=== PATIENT | female | born 1980 | race Caucasian/White ===

== ENCOUNTER 2020-12-16 07:59 | Emergency (ER) | payer OTHER ==
[2020-12-16] MEDS ORDERED: KETOROLAC 15 MG/ML VIAL IM STA (08:25)
[2020-12-16] MEDS ORDERED: FLUTICASONE NASAL SPRAY NAS STA (08:26)
[2020-12-16] MEDS ORDERED: SUMAtriptan 25 MG TABLET PO STA (08:26)
[2020-12-16] MEDS ORDERED: diphenhydrAMINE INJ 50 MG/ML VIAL IM STA (08:26)
--- NOTE | 2020-12-16 08:29 | ED Physician Documentation ---
History of Present Illness - Stated complaint Stated Complaint: HEADACHE - Chief complaint Chief Complaint: Neuro - History obtained from History obtained from: Patient - Additonal information Additional information: 40-year-old woman with past medical history of seasonal allergies and sinusitis p/w 7 bitemporal headache upon waking from sleep this morning a/w severe sinus congestion and some postnasal drip. +ear fullness. denies cough. patient has had headaches and sinus congestion on and off for the past 4 days. they recently moved [place] a new homestead. denies sick contacts, fever, nausea, co nfusion, vision changes. Review of Systems Ten Systems: 10 systems reviewed and negative Constitutional: denies: Fever, Chills Eyes: denies: Decreased vision, Photophobia Ears: reports: Other (+ ear fullness). denies: Ear pain Nose: reports: Congestion Throat: reports: Sore throat Respiratory: denies: Dyspnea, Cough GI: denies: Nausea Musculoskeletal: denies: Neck pain PD PAST MEDICAL HISTORY - Past Medical History Past Medical History: Yes Cardiovascular: Hypertension Respiratory: None Neuro: Headaches Endocrine/Autoimmune: None GI: None DIVISION SALES MANAGER: None : None HEENT: None Psych: ADD/ADHD Musculoskeletal: None Derm: None - Past Surgical History Past Surgical History: Yes General: Cholecystectomy /DIVISION SALES MANAGER: Breast implants - Present Medications Home Medications: Ambulatory Orders Medication Instructions Recorded Confirmed Ketorolac [Toradol] 10 mg PO Q6H PRN #30 tablet 12/16/20 Methylphenidate HCl [Concerta] 27 mg PO DAILY 12/16/20 12/16/20 - Allergies Allergies/Adverse Reactions: Allergies Allergy/AdvReac Type Severity Reaction Status Date / Time No Known Drug Allergies Allergy Verified 12/16/20 08:07 - Social History Does the pt smoke?: Yes Smoking Status: Current every day smoker Does the pt drink ETOH?: Yes Does the pt have substance abuse?: Yes Substance Use and Type: Marijuana - Immunizations Immunizations are current?: Yes PD ED PE NORMAL - Vitals Vital signs reviewed: Yes - General General: Alert and oriented X 3, No acute distress, Well developed/nourished - HEENT HEENT: Atraumatic, PERRL, EOMI, Ears normal, Moist mucous membranes, Other (moderate nasal congestion) - Neck Neck: Supple, no meningeal sign - Derm Derm: Normal color, Warm and dry - Extremities Extremities: No deformity - Neuro Neuro: Alert and oriented X 3, crime specialist 2-12 intact, No motor deficit, No sensory deficit, Normal speech, Other (normal gait and cerebellar testing) Results - Vitals Vitals: Vital Signs - 24 hr 12/16/20 08:07 Temperature 36.6 C Heart Rate 78 Respiratory 18 Rate Blood Pressure 151/94 H O2 Saturation 100 Oxygen O2 Source Room air PD MEDICAL DECISION MAKING - ED course ED course: 40-year-old woman with past medical history of sinusitis and seasonal allergies presents with severe sinus congestion and 7 out of 10 headache upon waking from sleep this morning. No neurologic symptoms aside from headache behind the eyes and in the temporal region, reproducible with palpation of the sinuses, and she has a normal neurologic exam. Symptomatic care discussed. Offered to keep her in the emergency department to see how the medication works, but they would prefer to go home and get some rest. Return precautions given. [place] Impression 1. headache 2. sinus congestion Departure - Departure Disposition: 01 Home, Self Care Condition: Good Instructions: Headaches Sinus Prescriptions: Ketorolac [Toradol] 10 mg PO Q6H PRN #30 tablet PRN Reason: Pain Comments: You were seen in the emergency department for severe sinus headache. I hope that you have some relief of your symptoms with the medications that we have given you! please get lots of rest, drink 8 to 10 glasses of water daily, and use oxymetazoline spray twice daily as need in addition to a cool mist humidifier. Please return to the emergency department if you have new or worse esperanza symptoms or other concerns. Follow up with your primary doctor. Forms: Activity restrictions
[2020-12-16] MEDS ORDERED: SODIUM CHLORIDE 0.9% 1,000 ML IV STA (09:20)
[2020-12-16] MEDS ORDERED: MORPHINE 2 MG/ML CARPUJECT IVP STA (09:20)
[2020-12-16] MEDS ORDERED: IOVERSOL 320 100 ML VIAL IVP ONE ×2 (09:30→10:34)
[2020-12-16 09:33] LABS: BASOPHILS % (AUTO) 0.3 %; EOSINOPHILS # (AUTO) 0.2 10^3/uL (0.0-0.7); HCT - HEMATOCRIT 47.3 % (37.0-47.0); HGB - HEMOGLOBIN 16.2 g/dL (12.0-16.0); LYMPHOCYTES # (AUTO) 1.6 10^3/uL (1.5-3.5); LYMPHOCYTES % (AUTO) 13.2 %; MEAN CORPUSCULAR HEMOGLOBIN 36.3 pg (27.0-31.0); MEAN CORPUSCULAR HGB CONC 34.2 g/dL (32.0-36.0); MEAN CORPUSCULAR VOLUME 106.1 fL (81.0-99.0); MEAN PLATELET VOLUME 9.8 fL (7.9-10.8); MONOCYTES # (AUTO) 0.7 10^3/uL (0.0-1.0); MONOCYTES % (AUTO) 5.8 %; NEUTROPHILS # (AUTO) 9.2 10^3/uL (1.5-6.6); NEUTROPHILS % (AUTO) 78.4 %; PLT - PLATELET COUNT 306 10^3/uL (130-450); RED BLOOD COUNT 4.46 10^6/uL (4.20-5.40); RED CELL DISTRIBUTION WIDTH 11.6 % (12.0-15.0); WHITE BLOOD COUNT 11.7 x10^3/uL (4.8-10.8)
[2020-12-16 09:40] LABS: CALCIUM 9.5 mg/dL (8.5-10.3); CREATININE 0.8 mg/dL (0.4-1.0)
[2020-12-16 10:15] LABS: HCG UR QUAL NEGATIVE
--- NOTE | 2020-12-16 11:06 | CT Report ---
PROCEDURE: ANGIO HEAD W/WO INDICATIONS: sudden severe headache on waking, refractory to me CONTRAST: IV CONTRAST: Optiray 320 ml: 80 PO CONTRAST: *NO PO CONTRAST TECHNIQUE: Precontrast 4.5 mm thick angled axial sections acquired from the foramen magnum to the vertex. Afte r the administration of intravenous contrast, 1 mm thick sections acquired through the [place] of [place] is. Postcontrast 4.5 mm thick sections then re-acquired from the foramen magnum to the vertex. 3-di mensional qnbusud-nreeflrnm-desphusvfg (MIP) and/or volume rendering reformats were acquired of the c entral intracranial vasculature. For radiation dose reduction, the following was used: automated ex posure control, adjustment of mA and/or kV according to patient size. COMPARISON: FINDINGS: Image quality: Excellent. Anterior circulation: Intracranial internal carotid arteries are normal in size and flow. The flow within the paired anterior cerebral arteries is normal and symmetric. The flow within the middle cer ebral arteries is normal and symmetric. The anterior communicating artery is seen. No aneurysms are seen. Posterior circulation: Visualized portions of the vertebral arteries demonstrate normal caliber, and join to form a normal appearing basilar artery. Flow within the posterior cerebral arteries is norm al and symmetric. No aneurysms are seen. CSF spaces: Ventricles are normal in size and shape. Basal cisterns are patent. No extra-axial flu id collections. Brain: No midline shift. No intracranial bleeds or masses. Cobb-white matter interface appears int act. Skull and face: Calvarium and facial bones appear intact, without suspicious lesions. Sinuses: Near complete opacification of the sphenoid sinuses. There is underlying sphenoid sinus muco rita thickening. Patchy bilateral ethmoid opacification. Mastoids are clear. IMPRESSION: 1. No evidence of acute stroke, hemorrhage, or mass. 2. No evidence of cerebral aneurysm. 3. Acute on chronic sphenoid sinusitis, chronic ethmoid sinusitis. Reviewed by: Valentín Thomason MD on 12/16/2020 10:04 AM OZIEL Approved by: Valentín Thomason MD on 12/16/2020 10:04 AM OZIEL Station ID: [id number]
[2020-12-16 11:53] VITALS: BP 120/80
== END 2020-12-16 11:53 | disposition home or self-care (01) ==
LOC: ED 07:59
DX: R51.9 Headache, unspecified (principal); J32.9 Chronic sinusitis, unspecified; I10 Essential (primary) hypertension; F17.200 Nicotine dependence, unspecified, uncomplicated
CPT/HCPCS: 36415; 70496; 80048; 81025; 85025; 96372; 96374; 99284; A9270; J1200; Q9967; 84703

== ENCOUNTER 2024-01-05 21:49 | Outpatient (CLI) | payer OTHER | END 2024-01-05 23:59 | disposition critical access hospital (66) | LOC: EMS 21:49 | DX: S51.812A Laceration without foreign body of left forearm, initial encounter (principal); S51.811A Laceration without foreign body of right forearm, initial encounter; X78.9XXA Intentional self-harm by unspecified sharp object, initial encounter | CPT/HCPCS: A0425; A0429 ==

== ENCOUNTER 2024-01-05 22:19 | Emergency (ER) | payer OTHER ==
[2024-01-05 22:43] LABS: BILIRUBIN,URINE NEGATIVE (NEGATIVE); GLUCOSE, URINE (UA) NEGATIVE (NEGATIVE); KETONES,URINE (UA) NEGATIVE (NEGATIVE); LEUKOCYTE ESTERASE, URINE TRACE (NEGATIVE); NITRITE,URINE NEGATIVE (NEGATIVE); OCCULT BLOOD,URINE LARGE (NEGATIVE); PROTEIN,URINE NEGATIVE (NEGATIVE); UROBILINOGEN,URINE 0.2 (NORMAL) E.U./dL (NORMAL)
[2024-01-05 22:44] LABS: CLARITY,URINE CLEAR (CLEAR)
[2024-01-05 22:45] LABS: HCG UR QUAL NEGATIVE
[2024-01-05 22:48] LABS: BASOPHILS % (AUTO) 0.4 %; EOSINOPHILS # (AUTO) 0.2 10^3/uL (0.0-0.7); HCT - HEMATOCRIT 39.3 % (37.0-47.0); HGB - HEMOGLOBIN 13.1 g/dL (12.0-16.0); LYMPHOCYTES # (AUTO) 1.9 10^3/uL (1.5-3.5); LYMPHOCYTES % (AUTO) 18.2 %; MEAN CORPUSCULAR HGB CONC 33.3 g/dL (32.0-36.0); MEAN CORPUSCULAR VOLUME 102.1 fL (81.0-99.0); MEAN PLATELET VOLUME 9.8 fL (7.9-10.8); MONOCYTES # (AUTO) 0.9 10^3/uL (0.0-1.0); MONOCYTES % (AUTO) 8.3 %; NEUTROPHILS # (AUTO) 7.6 10^3/uL (1.5-6.6); NEUTROPHILS % (AUTO) 70.9 %; PLT - PLATELET COUNT 317 10^3/uL (130-450); RED BLOOD COUNT 3.85 10^6/uL (4.20-5.40); RED CELL DISTRIBUTION WIDTH 11.1 % (12.0-15.0); WHITE BLOOD COUNT 10.7 x10^3/uL (4.8-10.8)
[2024-01-05 22:55] LABS: BACTERIA,URINE Rare /HPF (None Seen); RBC,URINE 0-5 /HPF (0-5); SQUAMOUS EPITHELIAL CELL,UR FEW Squamous (<= Few); WBC,URINE 0-3 /HPF (0-5)
[2024-01-05 22:56] LABS: AMPHETAMINE SCREEN,URINE NEGATIVE (NEGATIVE); BARBITURATE SCREEN,UR NEGATIVE (NEGATIVE); BENZODIAZEPINES SCREEN, URINE NEGATIVE (NEGATIVE); BUPRENORPHINE SCREEN, URINE NEGATIVE (NEGATIVE); COCAINE SCREEN URINE NEGATIVE (NEGATIVE); METHADONE SCREEN, URINE NEGATIVE (NEGATIVE); METHAMPHETAMINES SCREEN, URINE NEGATIVE (NEGATIVE); OPIATE SCREEN, URINE NEGATIVE (NEGATIVE); OXYCODONE SCREEN, URINE NEGATIVE (NEGATIVE); THC CANNABINOID SCREEN, URINE NEGATIVE (NEGATIVE); TRICYCLIC ANTIDEPRESSANT,URINE NEGATIVE (NEGATIVE)
[2024-01-05 23:08] LABS: ACETAMINOPHEN 0.3 ug/mL; ALBUMIN 4.7 g/dL (3.2-5.5); ALBUMIN/GLOBULIN RATIO 1.6 (1.0-2.2); ALKALINE PHOSPHATASE 49 IU/L (42-121); ALT ALANINE AMINOTRANSFERASE 14 IU/L (10-60); AST ASPARTATE AMINOTRANSFERASE 18 IU/L (10-42); BILIRUBIN,TOTAL 0.6 mg/dL (0.2-1.0); BUN - BLOOD UREA NITROGEN 19 mg/dL (6-20); CARBON DIOXIDE - CO2 24 mmol/L (21-32); CHLORIDE 102 mmol/L (101-111); GFR - MDRD 60 (>89); GLUCOSE 99 mg/dL (74-104); POTASSIUM 3.8 mmol/L (3.5-4.5); SODIUM 136 mmol/L (135-145); TOTAL PROTEIN 7.6 g/dL (6.4-8.9)
[2024-01-05 23:09] LABS: LIPASE < 10 U/L (11-82); SALICYLATE < 1.5 mg/dL
[2024-01-05 23:39] LABS: THYROID STIMULATING HORMONE 3.51 uIU/mL (0.34-5.60)
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
[2024-01-06] MEDS: BACITRACIN ZINC OINT 1 PACKET TOP STA (02:40)
[2024-01-06] MEDS: TETANUS/DIPHTHERIA/PERTUSSIS 0.5 ML SYRINGE IM ONE (02:40)
[2024-01-06] MEDS: LIDOCAINE 1% 2 ML VIAL SUBQ STA (02:40)
[2024-01-06 04:07] VITALS: BP 148/82; O2SAT 99
== END 2024-01-06 03:56 | disposition home or self-care (01) ==
LOC: EDUNIT# → ED 22:19
DX: S51.811A Laceration without foreign body of right forearm, initial encounter (principal); Z91.52 Personal history of nonsuicidal self-harm; W26.8XXA Contact with other sharp object(s), not elsewhere classified, initial encounter; F17.210 Nicotine dependence, cigarettes, uncomplicated; Z23 Encounter for immunization
CPT/HCPCS: 12002; 36415; 80053; 80143; 80179; 80306; 81001; 81025; 82077; 83690; 84443; 85025; 87086; 87635; 90471; 90715; 99284; A9270; G0425; Q3014; 81003